=== PATIENT | female | born 1950 | race Caucasian/White ===

== ENCOUNTER 2017-02-28 16:12 | Inpatient (IN) | payer OTHER, MEDICAID ==
[~2017-02-28] VITALS: Ht 152.4 cm; Wt 72.1 kg
[~2017-02-28 16:12] MED LIST: AMITRIPTYLINE H10 MG PO; AMLODIPINE BESY10 M1 PO; ARICEPT10 MG PO; ASPIR 8181 MG PO; BUFFERIN LOW DO81 M1 PO; CALCIFEROL8000 IU/ML PO; DONEPEZIL HYDRO10 M2 PO; ERGOCALCIFER50000 IU PO; GABAPENTIN100 M2 PO; GOOD SENSE ASP325 MG PO; LANTUS SOLOS100 U/M1 SC; LANTUS SOLOS100 U/M1 SQ; LEVAQUIN750 MG PO; LEVEMIR100 U/M1 SC; NAMENDA10 M2 PO; NORCO1 TA2 PO; NOVI SQ; PRA40 PO; RANITIDINE150 M1 PO; SEROQUEL25 MG PO; SIMVASTATIN20 M1 PO; VOLTAREN75 MG PO; ZES20 PO; ZOCOR20 MG PO
[2017-02-28 16:49] LABS: BASOPHIL % 1.6 % (0-2); PLATELET COUNT 219 x10^3mcL (130-400); RED CELL DISTRIBUTION WIDTH 13.3 % (11.5-14.5)
[2017-02-28 17:01] LABS: CARBON DIOXIDE 29.7 mmol/L (21-32); CREATININE SERUM 1.7 mg/dL (0.6-1.0); POTASSIUM SERUM 4.2 mmol/L (3.5-5.1)
[2017-02-28 17:05] LABS: BILIRUBIN TOTAL 0.3 mg/dL (0.20-1.00); TOTAL PROTEIN, SERUM 7.4 g/dL (6.4-8.2)
[2017-02-28 17:06] LABS: ALBUMIN 3.2 g/dL (3.4-5.0)
[2017-02-28] MEDS ORDERED: NOVOLOG FLEX100 U/M1 SC (17:10)
[2017-02-28] MEDS ORDERED: NAMENDA XR28 MG PO (17:10)
[2017-02-28] MEDS ORDERED: SEROQUEL25 MG PO (17:11)
[2017-02-28] MEDS ORDERED: DONEPEZIL HYDRO10 M2 PO (17:11)
[2017-02-28] MEDS ORDERED: NEURONTIN400 MG PO (17:11)
[2017-02-28 18:07] VITALS: BP 148/98
[2017-02-28 18:12] VITALS: Ht 152.4 cm; Wt 72.1 kg
[2017-02-28 19:42] LABS: CHOLESTEROL/HDL RATIO 5.1
[2017-02-28 21:02] VITALS: BP 157/79
[2017-03-01 05:28] VITALS: BP 127/54
[2017-03-01 06:41] LABS: CALCIUM 8.4 mg/dL (8.5-10.1); CARBON DIOXIDE 26.4 mmol/L (21-32); CREATININE SERUM 1.4 mg/dL (0.6-1.0); PHOSPHOROUS 3.3 mg/dL (2.5-4.9); POTASSIUM SERUM 4.4 mmol/L (3.5-5.1)
[2017-03-01 07:08] LABS: BASOPHIL % 0.4 % (0-2); PLATELET COUNT 197 x10^3mcL (130-400); RED CELL DISTRIBUTION WIDTH 13.6 % (11.5-14.5)
[2017-03-01 09:03] VITALS: BP 175/82
[2017-03-01 10:19] VITALS: BP 165/71
[2017-03-01 11:33] LABS: microscopic required? YES; urine erythrocyte TRACE (NEGATIVE)
[2017-03-01 15:01] VITALS: BP 143/65
[2017-03-01 18:24] VITALS: BP 133/58
[2017-03-01 20:53] VITALS: BP 168/72
[2017-03-02 05:40] VITALS: BP 123/56
[2017-03-02 06:02] LABS: BASOPHIL % 0.3 % (0-2); PLATELET COUNT 192 x10^3mcL (130-400); RED CELL DISTRIBUTION WIDTH 13.4 % (11.5-14.5)
[2017-03-02 06:39] LABS: CALCIUM 8.1 mg/dL (8.5-10.1); CARBON DIOXIDE 26.6 mmol/L (21-32); CREATININE SERUM 1.2 mg/dL (0.6-1.0); POTASSIUM SERUM 4.2 mmol/L (3.5-5.1)
[2017-03-02 08:36] VITALS: BP 147/65
[2017-03-02] MEDS ORDERED: LIPI20 PO (11:16)
[2017-03-02] MEDS ORDERED: ECO81 PO (11:17)
[2017-03-02 12:22] VITALS: BP 147/65
[2017-03-02] MEDS ORDERED: NOVOLOG FLEX100 U/M1 SC ×2 (12:48)
[2017-03-02 13:30] VITALS: BP 159/76
[2017-03-02 13:31] VITALS: BP 159/76
== END 2017-03-02 14:35 | disposition home health service (06) | DRG 73 ==
LOC: ED 16:12 → DU 17:20
PROVIDERS: Emergency Medicine; Family Medicine; ADMIT Family Medicine
DX: G90.9 Disorder of the autonomic nervous system, unspecified (principal); N17.0 Acute kidney failure with tubular necrosis; I50.43 Acute on chronic combined systolic (congestive) and diastolic (congestive) heart failure; D68.69 Other thrombophilia; E11.65 Type 2 diabetes mellitus with hyperglycemia; E11.51 Type 2 diabetes mellitus with diabetic peripheral angiopathy without gangrene; E11.59 Type 2 diabetes mellitus with other circulatory complications; I16.0 Hypertensive urgency; I34.0 Nonrheumatic mitral (valve) insufficiency; I35.8 Other nonrheumatic aortic valve disorders; E78.5 Hyperlipidemia, unspecified; G30.9 Alzheimer's disease, unspecified; F02.80 Dementia in other diseases classified elsewhere, unspecified severity, without behavioral disturbance, psychotic disturbance, mood disturbance, and anxiety; Z79.82 Long term (current) use of aspirin; Z79.4 Long term (current) use of insulin; Z79.891 Long term (current) use of opiate analgesic; Z68.31 Body mass index [BMI] 31.0-31.9, adult; Z86.73 Personal history of transient ischemic attack (TIA), and cerebral infarction without residual deficits
CPT/HCPCS: 82962; 83880; 97530-GP; J0360; J1815; J3490; J7030; Q0092

== ENCOUNTER 2017-06-13 14:26 | Emergency (ER) | payer OTHER, MEDICAID ==
[~2017-06-13] VITALS: Ht 154.9 cm; Wt 71.4 kg
[~2017-06-13 14:26] MED LIST changes: +ECO81 PO; +LIPI20 PO; +NAMENDA XR28 MG PO; +NEURONTIN400 MG PO; +NOVOLOG FLEX100 U/M1 SC
[2017-06-13 16:50] LABS: UA SPECIFIC GRAVITY >=1.030 (1.005-1.035); microscopic required? YES; urine erythrocyte 1+ (NEGATIVE)
[2017-06-13 16:51] LABS: BASOPHIL % 0.5 % (0-2); PLATELET COUNT 203 x10^3mcL (130-400)
[2017-06-13 16:56] LABS: RED CELL DISTRIBUTION WIDTH 14.6 % (11.5-14.5)
[2017-06-13 17:00] LABS: CALCIUM 9.2 mg/dL (8.5-10.1); CARBON DIOXIDE 26.1 mmol/L (21-32); CREATININE SERUM 2.3 mg/dL (0.6-1.0); POTASSIUM SERUM 5.4 mmol/L (3.5-5.1)
[2017-06-13 17:05] LABS: BILIRUBIN TOTAL 0.2 mg/dL (0.20-1.00); MAGNESIUM 1.9 mg/dL (1.8-2.4); PHOSPHOROUS 3.7 mg/dL (2.5-4.9); TOTAL PROTEIN, SERUM 7.7 g/dL (6.4-8.2)
[2017-06-13 17:16] LABS: ALBUMIN 3.3 g/dL (3.4-5.0)
[2017-06-13 19:33] VITALS: BP 189/83
== END 2017-06-13 19:33 | disposition home or self-care (01) ==
LOC: ED 14:26
PROVIDERS: Emergency Medicine
DX: E11.65 Type 2 diabetes mellitus with hyperglycemia (principal); N39.0 Urinary tract infection, site not specified; Z86.73 Personal history of transient ischemic attack (TIA), and cerebral infarction without residual deficits; E78.00 Pure hypercholesterolemia, unspecified; I10 Essential (primary) hypertension; F03.90 Unspecified dementia, unspecified severity, without behavioral disturbance, psychotic disturbance, mood disturbance, and anxiety; H40.9 Unspecified glaucoma
CPT/HCPCS: 82962; J0696; J1815; Q0092